=== PATIENT | male | born 1990 | race African-American/Black ===

== ENCOUNTER 2023-05-05 11:58 | Emergency (ER) | payer SELFPAY ==
[~2023-05-05] VITALS: Ht 182.9 cm; Wt 86.0 kg
[2023-05-05 12:04] VITALS: BP 111/65; TEMP 98.6; O2SAT 96
[2023-05-05] MEDS ORDERED: ALBUTEROL (0.083%) 2.5MG/3ML NEB HHN STA (12:33)
[2023-05-05] MEDS ORDERED: IPRATROPIUM BROMIDE (0.02%) 0.5MG/2.5ML NEB HHN STA (12:33)
[2023-05-05 13:14] VITALS: PULSE 70; RESP 20
[2023-05-05] MEDS ORDERED: ALBU6.7H3 INH (13:55)
[2023-05-05] MEDS ORDERED: ALBU05 NEB (13:55)
[2023-05-05] MEDS ORDERED: P20 MT (13:55)
== END 2023-05-05 14:26 | disposition home or self-care (01) ==
LOC: ER 11:58
DX: J45.901 Unspecified asthma with (acute) exacerbation (principal)
CPT/HCPCS: 94640; 99283; Z7610 ×3

== ENCOUNTER 2023-11-07 23:32 | Emergency (ER) | payer SELFPAY ==
[~2023-11-07] VITALS: Ht 180.3 cm; Wt 87.0 kg
[~2023-11-07 23:32] MED LIST: ALBU05 NEB; ALBU6.7H3 INH; P20 MT
[2023-11-07 23:39] VITALS: BP 123/74; TEMP 98
[2023-11-08] MEDS ORDERED: PREDNISONE 20MG TABLET PO ONE (01:15)
[2023-11-08] MEDS ORDERED: ALBUTEROL (0.083%) 2.5MG/3ML NEB HHN ONE ×2 (01:15→02:30)
[2023-11-08 01:33] VITALS: PULSE 98; RESP 20; O2SAT 91
[2023-11-08] MEDS ORDERED: ALBU18HF2 IH (02:33)
[2023-11-08] MEDS ORDERED: P50 MT (02:33)
[2023-11-08 03:21] VITALS: PULSE 99; RESP 20; O2SAT 94
== END 2023-11-08 04:00 | disposition home or self-care (01) ==
LOC: ER 23:54
DX: J45.901 Unspecified asthma with (acute) exacerbation (principal)
CPT/HCPCS: 94640; 99284; Z7610 ×4; J7512